=== PATIENT | male | born 1950 | race Caucasian/White ===

== ENCOUNTER 2019-01-17 13:09 | Inpatient (IN) | payer OTHER, MEDICAID ==
[~2019-01-17] VITALS: Ht 182.9 cm; Wt 76.7 kg
--- NOTE | 2019-01-17 13:09 | NUR ---
Patient BIBA BLS, transferred to bed 8. RN evaluating patient at bedside.
[2019-01-17 13:11] VITALS: BP 139/79
--- NOTE | 2019-01-17 13:18 | NUR ---
PATIENT [facility]IB[facility] WITH S/P CHOKING ON PIZZA X TODAY, DECREASED O2 SAT, 85%ON RA, CLEAR LUNG SOUNDS DIOGO. PT IS SELF TALKING, CONFUSED, UNABLE TO ANSWER QUESTIONS, PER CAREGIVER THIS IS BASELINE OF PT. HX---DEVELOPMENTAL DELAY, DEPRESSION, SEIZURE, G-TUBE (MEDICATIONS/WATER ONLY) . FLACC 0, VSS; PATIENT POSITIONED FOR COMFORT; HOB ELEVATED; BEDRAILS UP X2; BED DOWN. ER MD MADE AWARE OF PT STATUS.
--- NOTE | 2019-01-17 13:32 | NUR ---
CHEST X-RAY AT BEDSIDE.
[2019-01-17] MEDS ORDERED: NACL 0.9% 1,500 ML IV SCH (14:01)
[2019-01-17] MEDS ORDERED: ALBUTEROL 0.083% 2.5 MG/3 ML NEBU INH ONE (14:05)
[2019-01-17] MEDS ORDERED: methylPREDNISolone SS 125 MG/2 ML VIAL IVP ONE (14:05)
[2019-01-17] MEDS ORDERED: CLINDAMYCIN 900 MG in DEXTROSE 5% 100 ML IV ONE (14:05)
[2019-01-17] MEDS ORDERED: MAG SULF 2000 MG/WATER PREMIX 50 ML IV ONE (14:05)
[2019-01-17] MEDS ORDERED: IPRATROPIUM 0.02% 0.5 MG/2.5 ML NEBU INH ONE (14:05)
--- NOTE | 2019-01-17 14:18 | NUR ---
[facility] THERAPY AND RESPIRATORY DRUGS GIVEN ORDERED
--- NOTE | 2019-01-17 14:28 | NUR ---
IV LINE INSERTED TO LEFT FOREARM, NS BOLUS STARTED, PT TOLERATED WELL.
[2019-01-17] MEDS ORDERED: CLINDAMYCIN 900 MG/6 ML VIAL IV ONE (14:39)
[2019-01-17 14:42] LABS: BASOPHILS % (AUTO) 0.2 % (0.0-2.0); EOSINOPHILS # (AUTO) 0.1 K/uL (0-0.4); EOSINOPHILS % (AUTO) 0.7 % (0.0-4.0); HEMATOCRIT 43.1 % (36-52); HEMOGLOBIN 14.4 g/dL (12.0-18.0); LYMPHOCYTES # (AUTO) 0.7 K/uL (2.0-11.5); LYMPHOCYTES % (AUTO) 4.6 % (20.5-51.1); MEAN CORPUSCULAR HEMOGLOBIN 31 pg (27-31); MEAN CORPUSCULAR HGB CONC 33 g/dL (33-37); MEAN CORPUSCULAR VOLUME 92.3 fL (80-94); MONOCYTES # (AUTO) 1.4 K/uL (0.8-1.0); MONOCYTES % (AUTO) 8.6 % (1.7-9.3); NEUTROPHILS # (AUTO) 13.6 K/uL (1.8-7.7); NEUTROPHILS % (AUTO) 85.9 % (42.2-75.2); PLATELET COUNT (AUTO) 244 K/uL (140-450); RED BLOOD CELL COUNT(AUTO) 4.67 MIL/uL (4.20-6.10); RED CELL DISTRIBUTION WIDTH 13.6 % (11.6-13.7); WHITE BLOOD COUNT (AUTO) 15.8 K/uL (4.8-10.8)
[2019-01-17 15:05] LABS: ALBUMIN 3.4 g/dL (3.4-5.0); TOTAL BILIRUBIN 0.2 mg/dL (0.0-1.0)
--- NOTE | 2019-01-17 15:08 | NUR ---
# 14 FR Urinary catheter inserted utilizing sterile technique. Immediate return of 100 ml CLEAR YELLOW urine noted. Urine sample collected and sent to lab. Pt tolerated procedure WELL.
[2019-01-17 15:39] LABS: APPEARANCE,URINE CLEAR (CLEAR); BILIRUBIN,URINE NEGATIVE (NEGATIVE); BLOOD, URINE NEGATIVE (NEGATIVE); COLOR,URINE YELLOW (YELLOW); LEUKOCYTE ESTERASE ,URINE NEGATIVE (NEGATIVE); NITRITE, URINE NEGATIVE (NEGATIVE); UGLUCOSE NEGATIVE (NEGATIVE)
[2019-01-17] MEDS ORDERED: FAMO-90 PO (15:41)
[2019-01-17] MEDS ORDERED: CAR30 PO (15:41)
[2019-01-17] MEDS ORDERED: ALPR0.252 PO (15:41)
[2019-01-17] MEDS ORDERED: GLYC2TAB PO (15:41)
[2019-01-17] MEDS ORDERED: VALP-22 GT (15:41)
[2019-01-17] MEDS ORDERED: [UNRECOGNIZED DRUG - CODE] GT (15:41)
[2019-01-17] MEDS ORDERED: SYN.075 PO (15:41)
[2019-01-17] MEDS ORDERED: MIRABULK PO (15:41)
[2019-01-17] MEDS ORDERED: QUET25TA PO (15:41)
[2019-01-17] MEDS ORDERED: DOCU-300 PO (15:41)
[2019-01-17] MEDS ORDERED: TOP100 PO (15:41)
[2019-01-17] MEDS ORDERED: QUET50TA PO (15:41)
[2019-01-17 15:42] LABS: RBC,URINE 0-5 /HPF (0-5)
[2019-01-17] MEDS: DEXT 5% /NACL 0.9% 1,000 ML IV SCH (16:55)
[2019-01-17] MEDS ORDERED: MORPHINE SULFATE 2 MG/ML SYR IVP PRN (16:55)
[2019-01-17] MEDS ORDERED: MORPHINE SULFATE 4 MG/ML SYR IVP PRN (16:55)
[2019-01-17] MEDS ORDERED: ONDANSETRON 4 MG/2 ML VIAL IVP PRN (16:55)
[2019-01-17] MEDS ORDERED: ALBUTEROL 0.083% 2.5 MG/3 ML NEBU INH PRN (16:55)
--- NOTE | 2019-01-17 16:55 | NUR ---
CHANGED OXYGEN DEVICE TO A NASAL CANNULA AT 5 LPM SATURATION 94%-95% CAS/RN NOTIFIED
[2019-01-17] MEDS ORDERED: GLYCOPYRROLATE 2 MG PO SCH (17:00)
[2019-01-17 17:10] VITALS: BP 134/71
--- NOTE | 2019-01-17 17:10 | NUR ---
Patient WAS admitted to care of DR. SPENCER . Admited to TELEMETRY room 121B. Belongings list completed. Report to YOVANI MONTOYA AT BEDSIDE, PT VSS, DENIES PAIN.
--- NOTE | 2019-01-17 17:10 | NUR ---
RECEIVED PT FROM CRYSTAL GROWER NURSE, PT IS AWAKE AND AMBULATED TO THE BED, PT HAS A MENTAL RETARDATION, WITH AND IV LINE ON THE LEFT HAND G.22 ON SALINE LOCK. PT HAS A G-TUBE IN PLACE IN THE MID-ABDOMEN, AND STARK AN O2 AT 5L VIA NC IN PLACE. NO SIGN OF DISTRESS NOTED AND WILL MONITOR PT.
--- NOTE | 2019-01-17 17:15 | NUR ---
PT IS AWAKE AND VITAL SIGNS 5TAKEN AND BP IS 134/71, PULSE IS 91, O2 SATURATION IS 93% AT 5L O2 NC, RESPIRATION IS 20/MIN AND TEMPERATURE IS 97.3, MRSA SWAB DONE AND SAMPLE WAS SENT TO LAB. WILL MONITOR PT.
--- NOTE | 2019-01-17 17:40 | NUR ---
PT'S IV LINE WAS INFILTRATED AND A NEW IV LINE WAS STARTED TO PT ON THE RT FA G.22.
[2019-01-17] MEDS: DILTIAZEM 30 MG TAB PO SCH (18:57)
[2019-01-17] MEDS: LEVOFLOXACIN 500 MG/D5W PREMIX 100 ML IV SCH (18:58)
--- NOTE | 2019-01-17 19:04 | NUR ---
PT WAS STARTED ON D5NS AT A RATE OF 100ML/HR, AND VITAL SIGNS CHECKED PRIOR TO MEDICATION ADMINISTRATION AND PT TOLERATED IT, IV MEDICATION WAS GIVEN ALSO VIA PIGGYBACK AND WILL MONITOR PT.
--- NOTE | 2019-01-17 19:20 | NUR ---
ENDORSED PT TO WORM RAISER NURSE FOR CONTINUITY OF CARE. PT IS STABLE AT THIS TIME.
--- NOTE | 2019-01-17 19:25 | NUR ---
RECIEVED PT.AWAKE.ALERT.WITH NO SIGNS OF RESPIRATORY DISTRESS ,WITH G TUBE INTACT ,WITH IV SITE INTACT AND PATENT ,IVF INFUSING WELL ,ON O2 @5LPM/NC,LATEST O2 SAT. 93%,ON S2 PRECAUTION. BED IN LOW POSITION ,SIDE RAILS UP X2, CALL LIGHT WITHIN REACH ,AFEBRILE,INCONTINENT ,ON NPO EXCEPT MEDS.WILL CONTINUE TO MONITOR.
[2019-01-17 20:00] VITALS: BP 141/82
[2019-01-17] MEDS ORDERED: CALCIUM CARBONATE 500 MG TAB.CHEW PEG SCH (20:30)
[2019-01-17] MEDS ORDERED: DOCUSATE SODIUM PO SCH (21:00)
[2019-01-17] MEDS: VALPROIC ACID 250 MG/5 ML UDC GT SCH (21:06)
--- NOTE | 2019-01-17 21:06 | NUR ---
SCHEDULED MEDICINES GIVEN WITH APPLECAUCE / ORALLY GIVEN WITH ASPIRATION PRECAUTION. MONITOR SIDE EFFECTS OF MEDICATION FROM NOW AND THEN. WILL CONTINUE TO MONITOR.
[2019-01-17] MEDS: DOCUSATE SODIUM 100 MG GELCAP PO SCH (21:07)
[2019-01-17] MEDS: TOPIRAMATE 100 MG TAB PO SCH (21:07)
[2019-01-17] MEDS: QUEtiapine FUMARATE 25 MG TAB PO SCH ×2 (21:08→21:09)
[2019-01-17] MEDS: ALPRAZolam 0.25 MG TAB PO SCH (21:26)
--- NOTE | 2019-01-17 22:00 | NUR ---
MADE ROUNDS. PATIENT RESTING ON BED ,NO RESPIRATORY DISTRESS NOTED .
[2019-01-18] VITALS: BP 137/76
--- NOTE | 2019-01-18 | NUR ---
V/S TAKEN ,NO RESPIRATORY DISTRESS NOTED. IV SITE INTACT AND PATENT .BED IN LOW POSITION.SIDERAILS UP 2X.WILL CONTINUE TO MONITOR.
[2019-01-18 04:00] VITALS: BP 141/74
--- NOTE | 2019-01-18 04:00 | NUR ---
V/S TAKEN, NO RESPIRATORY DISTRESS NOTED .WILL CONTINUE TO MONITOR.
[2019-01-18] MEDS: DEXT 5% /NACL 0.9% 1,000 ML IV SCH ×2 (05:20→12:55)
[2019-01-18] MEDS: LEVOTHYROXINE 0.075 MG TAB PO SCH (05:54)
[2019-01-18 07:46] LABS: HEMATOCRIT 39.1 % (36-52); LYMPHOCYTES # (AUTO) 0.9 K/uL (2.0-11.5); MEAN CORPUSCULAR HEMOGLOBIN 31 pg (27-31); MEAN CORPUSCULAR HGB CONC 33 g/dL (33-37); MEAN CORPUSCULAR VOLUME 92.1 fL (80-94); MONOCYTES # (AUTO) 1.4 K/uL (0.8-1.0); MONOCYTES % (AUTO) 7.3 % (1.7-9.3); NEUTROPHILS # (AUTO) 17.5 K/uL (1.8-7.7); PLATELET COUNT (AUTO) 263 K/uL (140-450); RED BLOOD CELL COUNT(AUTO) 4.24 MIL/uL (4.20-6.10); RED CELL DISTRIBUTION WIDTH 13.7 % (11.6-13.7); WHITE BLOOD COUNT (AUTO) 19.8 K/uL (4.8-10.8)
--- NOTE | 2019-01-18 07:46 | NUR ---
REPORT GIVEN TO YOVANI MONTOYA FOR CONTINUITY OF CARE PT IN STABLE CONDITION.
--- NOTE | 2019-01-18 07:47 | NUR ---
RECEIVED PT FROM REGIONAL AGRONOMIST NURSE. PT AWAKE, ORIENTED ONLY TO SELF. RESPIRATIONS ARE EVEN AND UNLABORED, ON 5L O2 VIA NC. PT HAS 22GA IV ON RIGHT FA WITH D5NS ON 100ML/HR. PT HAS G-TUBE MID ABD. IS NPO SINCE 01/17 AT DINNER TIME. PT IS ON BED REST, FALL RISK PRECAUTION. SIDE RAILS UP AND CALL LIGHT WITHIN REACH.
[2019-01-18 08:00] VITALS: BP 124/82
[2019-01-18 08:03] LABS: ANION GAP 11.8 (8-16); POTASSIUM 3.8 mmol/L (3.5-5.1)
[2019-01-18 08:30] LABS: LYMPHOCYTES % (AUTO) 4.4 % (20.5-51.1); NEUTROPHILS % (AUTO) 88.3 % (42.2-75.2)
[2019-01-18] MEDS: VALPROIC ACID 250 MG/5 ML UDC GT SCH ×2 (08:38→22:06)
[2019-01-18] MEDS: CALCIUM CARBONATE 500 MG TAB.CHEW PEG SCH ×3 (08:39→17:07)
[2019-01-18] MEDS: QUEtiapine FUMARATE 25 MG TAB PO SCH ×3 (08:39→22:07)
[2019-01-18] MEDS: DOCUSATE SODIUM 100 MG GELCAP PO SCH ×2 (08:39→22:07)
[2019-01-18] MEDS: ALPRAZolam 0.25 MG TAB PO SCH ×2 (08:40→22:08)
[2019-01-18] MEDS: FAMOTIDINE 20 MG TAB PO SCH (08:40)
[2019-01-18] MEDS: DILTIAZEM 30 MG TAB PO SCH ×3 (08:41→17:08)
[2019-01-18] MEDS: POLYETHYLENE GLYCOL 17 GM/PKT PO SCH (08:41)
--- NOTE | 2019-01-18 08:45 | NUR ---
PT IS AWAKE AND SEATED ON THE BED, AGITATED, MEDICATIONS WERE GIVEN, CRUSHED WITH APPLE SAUCE AND PT TOLERATED IT, VITAL SIGNS CHECKED AND BP IS 139/81, PULSE IS 87, O2 SATURATION IS 93%, PT TOLERATED THE MEDICATIONS AND NO SIGN OF DISTRESS NOTED. WILL MONITOR PT.
[2019-01-18] MEDS ORDERED: TOPIRAMATE 100 MG TAB PO SCH (08:47)
[2019-01-18] MEDS: TOPIRAMATE 100 MG TAB PO SCH ×2 (08:58→22:08)
--- NOTE | 2019-01-18 09:12 | NUR ---
PT REMOVED HIS NASAL CANNULA AND DOES NOT WANT TO HOOK IT ON HIM, O2 SATURATION IS AT 89%. PT IS AGITATED AT THIS TIME.
--- NOTE | 2019-01-18 10:34 | NUR ---
PT IS SLEEPING ON THE BED, WITH SIDE RAILS UP AND CALL LIGHT WITHIN REACH, O2 SATURATION IS AT 91% ON ROOM AIR. RESPIRATION IS EVEN. NO SIGN OF DISTRESS NOTED AND WILL MONITOR PT.
[2019-01-18] MEDS: GLYCOPYRROLATE 1 MG TAB PO SCH ×2 (11:53→17:03)
--- NOTE | 2019-01-18 11:53 | NUR ---
PT IS AWAKE AND VITAL SIGNS CHECKED, BP IS 120/75, PULSE IS 82, O2 SATURATION IS AT 92% ON ROOM AIR, PT DOES NOT WANT NASAL CANNULA TO BE PLACE ON HIM, TEMPERATURE IS 98.4, RESPIRATION IS 18/MIN, MEDICATION WAS GIVEN AND PT TOLERATED IT. NO SIGN OF DISTRESS NOTED, PT IS REFUSING TO BE REPOSITIONED NOW. WILL MONITOR PT.
[2019-01-18 12:00] VITALS: BP 120/75
--- NOTE | 2019-01-18 14:58 | NUR ---
PT IS AWAKE AND LYING ON THE BED, VITAL SIGNS CHECKED AND BP IS 116/71, PULSE 85, O2 SATURATION IS 93%, MEDICATIONS WERE GIVEN AND PT TOLERATED IT. NO SIGN OF DISTRESS NOTED AND WILL MONITOR PT.
[2019-01-18 16:00] VITALS: BP 122/75
[2019-01-18] MEDS: LEVOFLOXACIN 500 MG/D5W PREMIX 100 ML IV SCH (17:05)
--- NOTE | 2019-01-18 17:05 | NUR ---
PT GIVEN MEDS WITH APPLESAUCE, AND TOLERATED WELL. VS BP129/76, HR 76, O2 96%
[2019-01-18] MEDS: LORazepam 2 MG/ML VIAL IVP PRN (17:55)
--- NOTE | 2019-01-18 17:59 | NUR ---
PT IS AGITATED AND WANTING TO GO OUT OF THE BED, VITAL SIGNS CHECKED AND BP IS 122/71.,PULSE IS 76, O2 SATURATION IS 96% AND RESPIRATION IS 20/MIN, IV MEDICATION WAS GIVEN VIA IV PUSH AND PT TOLERATED IT. WILL MONITOR PT.
--- NOTE | 2019-01-18 18:41 | NUR ---
PER [facility], PT IS FULL CODE.
--- NOTE | 2019-01-18 19:20 | NUR ---
ENDORSED PT TO MFTS NURSE FOR CONTINUITY OF CARE. PT ASLEEP, RESPIRATION EVEN AND STABLE AT THIS TIME.
--- NOTE | 2019-01-18 19:20 | NUR ---
REPORT RECEIVED FROM JAN PINA AND MAGED PINA DAYSHIFT NURSES AT BEDSIDE FOR CONTINUITY OF CARE, PT IN STABLE CONDITION.
[2019-01-18 20:00] VITALS: BP 110/61
--- NOTE | 2019-01-18 20:00 | NUR ---
PT IN BED ALL FALLS AND SEIZURE PRECAUTIONS IN PLACE. PT IS AOX1 HE HAS A 22G ON RIGHT F/A RUNNING D5N/S AT 100MLS/HR. PT HAS A G TUBE, POSITIVE FOR PLACEMENT. HE IS ON N/C AT 5 LITERS 02. LUNG SOUNDS DIMINISHED AND BOWEL SOUNDS PRESENT BUT HYPOACTIVE AT THIS TIME. V/S FOLLOWS T 98.0 P 71 R 18 B/P 110/61 02 96% WITH 5 LITERS 02 VIA N/C.
--- NOTE | 2019-01-18 21:00 | NUR ---
PT GIVEN ORDERED SCHEDULED MEDS AT THIS TIME OF DEPAKOTE, COLACE, SEROQUEL, TOPAMAX AND XANAX. MEDS GIVEN VIA G TUBE. PT AWAKE AND ALERT WITH NO S/S OF PAIN OR DISTRESS NOTED. ALL FALLS AND SEIZURE PRECAUTIONS IN PLACE.
--- NOTE | 2019-01-18 22:00 | NUR ---
PT TURNED, CHANGED AND REPOSITIONED. ALL FALLS AND SEIZURE PRECAUTIONS IN PLACE.
--- NOTE | 2019-01-18 22:30 | NUR ---
IV BAG COMPLETED , NEW BAG OF D5N/S CHANGED AND RUNNING ORDERED AT 100MLS/HR.
[2019-01-19] VITALS: BP 110/61
--- NOTE | 2019-01-19 | NUR ---
PT IN BED ASLEEP BUT AROUSABLE TO NAME AND LIGHT TOUCH. PT HAS N/C IN PLACE AND RUNNING 5L VIA O2. IV SITE INTACT AND RUNNING D5N/S AT 100MLS/HR ORDERED. V/S FOLLOWS T 98.2 P 81 R 18 B/P 110/61 02 92%. NO S/S OF PAIN OR DISTRESS NOTED.
[2019-01-19] MEDS: DEXT 5% /NACL 0.9% 1,000 ML IV SCH ×2 (01:29→09:15)
--- NOTE | 2019-01-19 03:08 | NUR ---
PT IN BED SLEEPING ALL FALLS AND SEIZURE PRECAUTIONS IN PLACE, NO S/S OF PAIN OR DISTRESS NOTED.
[2019-01-19 04:00] VITALS: BP 120/61
--- NOTE | 2019-01-19 04:00 | NUR ---
PT IN BED WITH ALL FALLS AND SEIZURE PRECAUTIONS IN PLACE, V/S FOLLOWS T 97.7 P 84 R 18 B/P 120/61 02 96% ON 5 LITERS VIA N/C.
[2019-01-19] MEDS ORDERED: CLINDAMYCIN 600 MG in DEXTROSE 5% 50 ML IV SCH (05:00)
[2019-01-19] MEDS ORDERED: CLINDAMYCIN 600 MG/4 ML VIAL ONE (05:10)
[2019-01-19] MEDS: LEVOTHYROXINE 0.075 MG TAB PO SCH (05:26)
[2019-01-19] MEDS: GLYCOPYRROLATE 1 MG TAB PO SCH ×3 (05:27→17:06)
--- NOTE | 2019-01-19 07:21 | NUR ---
REPORT GIVEN TO USHA PINA DAYSHIFT NURSE AT BEDSIDE FOR CONTINUITY OF CARE, PT IN STABLE CONDITION.
--- NOTE | 2019-01-19 07:22 | NUR ---
BEDSIDE REPORT RECEIVED FROM YOVANI WOODS. PATIENT ON TELE MONITOR AND STANDARD PRECAUTIONS IN PLACE. PATIENT ON 5 L O2 NC, NO DISTRESS NOTED. PATIENT AAOX1 TO NAME. SKIN INTACT. FALL RISK PROTOCOL IN PLACE. PATIENT WITH G TUBE, DRESSING CLEAN DRY AND INTACT, NO GASTRIC RESIDUAL AND SWOOSH HEARD. IV ON R FA 22G INFUSING D5 NS AT 100, IV ASYMPTOMATIC PATENT AND INTACT. SEIZURE PRECAUTIONS IN PLACE. BED IN LOW POSITION, CALL LIGHT WITHIN REACH, SIDE RAILS X2 UP
[2019-01-19 08:00] VITALS: BP 111/88
[2019-01-19] MEDS: CALCIUM CARBONATE 500 MG TAB.CHEW PEG SCH ×3 (09:13→17:06)
[2019-01-19] MEDS: FAMOTIDINE 20 MG TAB PO SCH (09:14)
[2019-01-19] MEDS: VALPROIC ACID 250 MG/5 ML UDC GT SCH ×2 (09:14→20:19)
[2019-01-19] MEDS: DOCUSATE SODIUM 100 MG GELCAP PO SCH ×2 (09:14→20:19)
[2019-01-19] MEDS: POLYETHYLENE GLYCOL 17 GM/PKT PO SCH (09:15)
[2019-01-19] MEDS: DILTIAZEM 30 MG TAB PO SCH ×3 (09:15→17:06)
[2019-01-19] MEDS: TOPIRAMATE 100 MG TAB PO SCH ×2 (09:16→20:22)
[2019-01-19] MEDS: QUEtiapine FUMARATE 25 MG TAB PO SCH ×3 (09:16→20:21)
[2019-01-19] MEDS: ALPRAZolam 0.25 MG TAB PO SCH ×2 (09:16→20:30)
--- NOTE | 2019-01-19 09:32 | NUR ---
ADMINISTERED SCHEDULED MEDS. PATIENT TOLERATED WELL
--- NOTE | 2019-01-19 11:50 | NUR ---
PATIENT WATCHING TV, NO DISTRESS NOTED, ON 5 L O2 NC
[2019-01-19 12:00] VITALS: BP 126/72
[2019-01-19] MEDS: CLINDAMYCIN PHOS 600MG/D5W PM 50 ML IV SCH ×2 (12:16→20:19)
--- NOTE | 2019-01-19 13:32 | NUR ---
PATIENT HAS BEEN SCREENED AND CATEGORIZED MODERATE NUTRITION RISK. PATIENT WILL BE SEEN WITHIN 3-5 DAYS OF ADMISSION. 01/20/19AGUSTÍN ZAMORA MBA, RD
--- NOTE | 2019-01-19 14:31 | NUR ---
PATIENT SLEEPING, ON 5L O2 NC, NO DISTRESS NOTED
[2019-01-19 16:00] VITALS: BP 109/40
[2019-01-19] MEDS: LEVOFLOXACIN 500 MG/D5W PREMIX 100 ML IV SCH (17:07)
--- NOTE | 2019-01-19 17:16 | NUR ---
PATIENT SLEEPING, R SIDE LYING POSITION, ON 3 L O2 NC, NO S/S OF RESPIRATORY DISTRESS
--- NOTE | 2019-01-19 19:20 | NUR ---
RECEIVED REPORT FROM USHA PINA DAYSHIFT NURSE AT BEDSIDE FOR CONTINUITY OF CARE, PT IN STABLE CONDITION.
--- NOTE | 2019-01-19 19:20 | NUR ---
GAVE BEDSIDE REPORT TO YOVANI WOODS FOR CONTINUITY OF CARE. PATIENT ENDORSED IN STABLE CONDITION
[2019-01-19 20:00] VITALS: BP 108/70
--- NOTE | 2019-01-19 20:00 | NUR ---
PT IN LOW BED WITH ALL FALLS AND SEIZURE AND CONTACT PRECAUTIONS IN PLACE. PT BOOSTED AND REPOSITION IN BED. V/S FOLLOWS T 98.5 P 86 R 18 B/P 108/70 02 93% WITH 5 LITERS VIA N/C. IV SITE R F/A 22G RUNNING D5N/S TO KVO. PT IN NO S/S OF PAIN OR DISTRESS NOTED. LUNG SOUNDS DIMINISHED , BOWEL SOUNDS PRESENT.
--- NOTE | 2019-01-19 21:00 | NUR ---
PT IN BED WITH ALL FALLS, CONTACT AND SEIZURE PRECAUTIONS IN PLACE. GT TUBE INTACT , POSITIVE FOR PLACEMENT AND FLUSHED PATENT ALL DUE MEDICATION GIVEN ORDERED DEPAKENE COLACE, TOPAMAX, XANAX, SEROQUEL ALL GIVEN VIA GT PT ALSO RECEIVED IV ABT CLINDAMYCIN.
--- NOTE | 2019-01-19 21:30 | NUR ---
PT TURNED, CHANGED AND REPOSITIONED.
--- NOTE | 2019-01-19 22:30 | NUR ---
PT ASLEEP IN BED, ALL FALLS, CONTACT AND SEIZURE PRECAUTIONS IN PLACE.
[2019-01-20] VITALS: BP 106/58
--- NOTE | 2019-01-20 00:15 | NUR ---
PT IN BED WITH ALL FALLS AND SEIZURE PRECAUTIONS OBSERVED. PT WAS TURNED , CHANGED AND REPOSITIONED. PT NOTED WITH REDDENED SKIN ON R F/A 22G R. DISCUSSED WITH CHARGE NURSE CHUCK WHOM ALSO AGREED THAT SITE WAS INFILTRATED. NEW IV SITE PROVIDED TO LEFT WRIST 22G ON WRIST. V/S FOLLOWS T 98.5 P 86 R 18 B/P 108/70 02 93% ON 5 LITERS VIA N/C.
[2019-01-20 04:00] VITALS: BP 113/59
--- NOTE | 2019-01-20 04:00 | NUR ---
PT IN BED RESTING WITH EYES CLOSED BUT AROUSABLE TO NAME AND LIGHT TOUCH. V/S FOLLOWS T 98.4 P 70 R 18 B/P 113/59 02 96% WITH 5 LITERS VIA N/C.
--- NOTE | 2019-01-20 05:29 | NUR ---
DECREASED NASAL CANNULA FROM 5L/M TO 3L/M AND PATIENT DESAT TO 90-91%. INCREASED TO 4L/M AND SPO2 MAINTAINED AT 93%. WATER IS STILL AVAILABLE IN BUBBLE HUMIDIFICATION.
[2019-01-20] MEDS: CLINDAMYCIN PHOS 600MG/D5W PM 50 ML IV SCH ×3 (05:58→21:34)
[2019-01-20] MEDS: LEVOTHYROXINE 0.075 MG TAB PO SCH (05:59)
[2019-01-20] MEDS: GLYCOPYRROLATE 1 MG TAB PO SCH ×3 (05:59→18:03)
--- NOTE | 2019-01-20 06:00 | NUR ---
PT IN BED ALL FALLS AND SEIZURE PRECAUTIONS IN PLACE. PT GIVEN IVABT CLINDAMYCIN ORDERED. PT ALSO RECEIVED SYNTHROID AND RUBINOL ORDERED. IV SITE FLUSHED PATENT. NO S/S OF PAIN OR DISTRESS NOTED.
[2019-01-20 06:54] LABS: BASOPHILS # (AUTO) 0.1 K/uL (0.00-0.22); BASOPHILS % (AUTO) 0.7 % (0.0-2.0); EOSINOPHILS # (AUTO) 0.2 K/uL (0-0.4); EOSINOPHILS % (AUTO) 1.6 % (0.0-4.0); HEMATOCRIT 37.4 % (36-52); HEMOGLOBIN 12.5 g/dL (12.0-18.0); LYMPHOCYTES # (AUTO) 2.4 K/uL (2.0-11.5); LYMPHOCYTES % (AUTO) 16.2 % (20.5-51.1); MEAN CORPUSCULAR HEMOGLOBIN 31 pg (27-31); MEAN CORPUSCULAR HGB CONC 34 g/dL (33-37); MEAN CORPUSCULAR VOLUME 91.7 fL (80-94); MONOCYTES # (AUTO) 1.3 K/uL (0.8-1.0); MONOCYTES % (AUTO) 9.2 % (1.7-9.3); NEUTROPHILS # (AUTO) 10.6 K/uL (1.8-7.7); NEUTROPHILS % (AUTO) 72.3 % (42.2-75.2); PLATELET COUNT (AUTO) 258 K/uL (140-450); RED BLOOD CELL COUNT(AUTO) 4.07 MIL/uL (4.20-6.10); RED CELL DISTRIBUTION WIDTH 13.3 % (11.6-13.7); WHITE BLOOD COUNT (AUTO) 14.6 K/uL (4.8-10.8)
[2019-01-20 07:05] LABS: ANION GAP 12.7 (8-16); CARBON DIOXIDE 22.2 mmol/L (21-32); CREATININE 0.9 mg/dL (0.7-1.3); POTASSIUM 3.9 mmol/L (3.5-5.1)
--- NOTE | 2019-01-20 07:23 | NUR ---
REPORT TO BE GIVEN AT BEDSIDE TO DAYSHIFT NURSE FOR CONTINUITY OF CARE, PT IN STABLE CONDITION.
--- NOTE | 2019-01-20 07:30 | NUR ---
RECEIVED PT ON BED AAOX1, TO NAME ONLY, PT CONFUSED, HX MENTAL RETARDATION. NO SOB NOTED. NO SIGNS OF PAIN AT THIS TIME. IV TO LEFT HAND PATENT AND INTACT. CHEST DIMINISHED AIR ENTRY TO THE BASES, WHEEZING HEARD BILATERALLY, PT ON 2 LPM NASAL CANNULA, WITH O2 SATS AT 93% . ABDOMEN SOFT, BOWEL BOWEL SOUNDS PRESENT, G-TUBE IN PLACE, 5 MLS RESIDUALS NOTED. BED ON LOWEST POSITION WITH 3 SIDE RAILS RAISED UP, BED ALARM ON. INSTRUCTED PT TO CALL FOR ASSISTANCE, CALL LIGHT WITHIN REACH, VERBALIZED PARTIAL UNDERSTANDING.
[2019-01-20 08:00] VITALS: BP 132/83
--- NOTE | 2019-01-20 08:30 | NUR ---
PT TOLERATED PUREE DIET. ON ASPIRATION PRECAUTIONS.
[2019-01-20] MEDS: FAMOTIDINE 20 MG TAB PO SCH (09:59)
[2019-01-20] MEDS: POLYETHYLENE GLYCOL 17 GM/PKT PO SCH (09:59)
[2019-01-20] MEDS: CALCIUM CARBONATE 500 MG TAB.CHEW PEG SCH ×3 (09:59→18:03)
[2019-01-20] MEDS: DOCUSATE SODIUM 100 MG GELCAP PO SCH ×2 (09:59→21:30)
[2019-01-20] MEDS: DILTIAZEM 30 MG TAB PO SCH ×3 (10:00→18:03)
[2019-01-20] MEDS: TOPIRAMATE 100 MG TAB PO SCH ×2 (10:00→21:29)
[2019-01-20] MEDS: QUEtiapine FUMARATE 25 MG TAB PO SCH ×3 (10:00→21:34)
[2019-01-20] MEDS: ALPRAZolam 0.25 MG TAB PO SCH ×2 (10:00→21:30)
[2019-01-20] MEDS: VALPROIC ACID 250 MG/5 ML UDC GT SCH ×2 (10:01→21:28)
--- NOTE | 2019-01-20 10:34 | NUR ---
CONTACTED [facility] AT [phone], SPOKE TO SERENA LUNA FACILITY DIRECTOR. SHE STATED PATIENT NOT IN O2 RECENTLY BUT HAVE USED ONE IN THE PAST. ALSO STATED THAT IF PATIENT NEEDS IT, THE FACILITY CAN PROVIDE O2. PATIENT IS NOT CONSERVED, BUT THEY CONTACT [facility], CM IS WEN GODOY [phone]. PATIENT NEEDS HELP WITH DRESSING, BUT ABLE TO EAT BY HIMSELF, ON PUREE DIET, NEEDS ASSISTANCE AND REMINDER FOR BATHROOM USE. SHE ALSO CLAIMED PATIENT IS INCONTINENT. PATIENT'S PCP IS DR. Jf SPENCER, [employer] DEVELOPER VISITS THE PATIENT IN THE FACILITY. NO FAMILY MEMBER INVOLVED WITH THE CARE.
[2019-01-20 12:00] VITALS: BP 106/60
--- NOTE | 2019-01-20 12:30 | NUR ---
PT TOLERATED PUREE DIET FOR LUNCH. ON ASPIRATION PRECAUTIONS. ALL MEDICATIONS ARE GIVEN THRU PEG.
--- NOTE | 2019-01-20 15:00 | NUR ---
PT RESTING. NO SOB NOTED. NO SIGNS OF PAIN.
[2019-01-20 16:00] VITALS: BP 125/62
--- NOTE | 2019-01-20 18:00 | NUR ---
PT TOLERATED PUREE DIET FOR DINNER. ON ASPIRATION PRECAUTIONS. PT ABLE TO FEED HIMSELF ON STANDBY ASSIST.
[2019-01-20] MEDS: LEVOFLOXACIN 500 MG/D5W PREMIX 100 ML IV SCH (18:03)
--- NOTE | 2019-01-20 19:00 | NUR ---
PTS' BOTTOMER OPERATOR AT THE BEDSIDE. UPDATED WITH PT'S POC. PT AWAKE. NO SOB NOTED. NO COMPLAINTS MADE. WILL ENDORSE TO NEXT SHIFT NURSE FOR CONTINUITY OF CARE.
--- NOTE | 2019-01-20 19:20 | NUR ---
RECEIVED BEDSIDE REPORT FROM DAY SHIFT RN. PATIENT IN STABLE CONDITION ON 2L O2 VIA NC. SAFETY PRECAUTIONS IN PLACE. CALL LIGHT IN REACH.
[2019-01-20 20:00] VITALS: BP 139/26
--- NOTE | 2019-01-20 20:00 | NUR ---
INFORMED PTS NURSE PT WAS ON ROOM AIR WITH SATURATION OF 95%. PT WAS IN NO RESPIRATORY DISTRESS AND WITH NO SOB. WILL CONT TO MONITOR PT
--- NOTE | 2019-01-20 21:34 | NUR ---
ADMINISTERED SCHEDULED MEDICATIONS. PLACED PATIENT IN HIGH FOWLERS AND ADMINISTERED MEDICATIONS CRUSHED IN APPLESAUCE, PATIENT TOLERATED WELL. SAFETY PRECAUTIONS IN PLACE. WILL CONTINUE TO MONITOR.
--- NOTE | 2019-01-20 23:40 | NUR ---
ASSISTED SHED WORKERS SUPERVISOR WITH CLEANING PATIENT AND REPOSITIONING FOR COMFORT. PATIENT VITALS STABLE. PATIENT WANTS TO SLEEP. WILL CONTINUE TO MONITOR.
[2019-01-21] VITALS: BP 100/57
--- NOTE | 2019-01-21 00:23 | NUR ---
PATIENT WATCHING TV. VITALS STABLE ON 2L O2 NC. SAFETY PRECAUTIONS IN PLACE. WILL CONTINUE TO MONITOR.
--- NOTE | 2019-01-21 03:06 | NUR ---
PATIENT IS SLEEPING. NO SIGNS OF DISTRESS ON 2L NC, SAFETY PRECAUTIONS IN PLACE. WILL CONTINUE TO MONITOR.
[2019-01-21 04:00] VITALS: BP 101/71
[2019-01-21] MEDS: CLINDAMYCIN PHOS 600MG/D5W PM 50 ML IV SCH ×3 (04:31→20:16)
--- NOTE | 2019-01-21 04:35 | NUR ---
ASSISTED YARD SPOTTER WITH CLEANING AND REPOSITIONING PATIENT.
--- NOTE | 2019-01-21 05:42 | NUR ---
PATIENT SLEEPING, NO SIGNS OF DISTRESS NOTED. SAFETY PRECAUTIONS IN PLACE. WILL CONTINUE TO MONITOR.
[2019-01-21] MEDS: LEVOTHYROXINE 0.075 MG TAB PO SCH (06:07)
[2019-01-21] MEDS: GLYCOPYRROLATE 1 MG TAB PO SCH ×3 (06:43→16:15)
--- NOTE | 2019-01-21 06:45 | NUR ---
ADMINISTERED SCHEDULED MEDICATIONS VIA G-TUBE. PATIENT TOLERATED WELL. NO SIGNS OF DISTRESS ON 1 L NC, WILL CONTINUE TO MONITOR.
--- NOTE | 2019-01-21 07:21 | NUR ---
RECEIVED REPORT FROM WORKERS COMPENSATION SPECIALIST RN. PT IS LAYING IN BED. PT IS AAOX1 TO NAME ONLY. PT EXHIBITS CONFUSION, HX MENTAL RETARDATION. NO SOB NOTED. NO SIGNS OF PAIN AT THIS TIME. IV TO LEFT HAND PATENT AND INTACT. PT ON 2 LPM VIA NASAL CANNULA, WITH O2 SAT AT 92% . ABDOMEN SOFT, BOWEL SOUNDS PRESENT, G-TUBE IN PLACE, 5 ML RESIDUALS NOTED. BED ON LOWEST POSITION WITH 2 SIDE RAILS RAISED UP, BED ALARM ON. INSTRUCTED PT TO USE CALL LIGHT FOR ASSISTANCE. PT VERBALIZED UNDERSTANDING BUT WILL NEED REINFORCEMENT OFTEN. CALL LIGHT WITHIN REACH. WILL ROUND FREQUENTLY ON PT.
[2019-01-21 08:00] VITALS: BP 136/72
[2019-01-21] MEDS: DOCUSATE SODIUM 100 MG GELCAP PO SCH ×2 (09:22→20:08)
[2019-01-21] MEDS: VALPROIC ACID 250 MG/5 ML UDC GT SCH ×2 (09:22→20:07)
--- NOTE | 2019-01-21 09:22 | NUR ---
ADMINISTERED MORNING MEDS TO PT. PT TOLERATED THEM WELL. NO SIGNS OF SOB, FLACC-0. WILL ROUND FREQUENTLY ON PT. BED IN LOW POSITION, CALL LIGHT WITHIN REACH.
[2019-01-21] MEDS: QUEtiapine FUMARATE 25 MG TAB PO SCH ×3 (09:23→20:09)
[2019-01-21] MEDS: TOPIRAMATE 100 MG TAB PO SCH ×2 (09:23→20:09)
[2019-01-21] MEDS: DILTIAZEM 30 MG TAB PO SCH ×3 (09:23→17:00)
[2019-01-21] MEDS: ALPRAZolam 0.25 MG TAB PO SCH ×2 (09:23→20:09)
[2019-01-21] MEDS: FAMOTIDINE 20 MG TAB PO SCH (09:23)
[2019-01-21] MEDS: POLYETHYLENE GLYCOL 17 GM/PKT PO SCH (09:24)
[2019-01-21] MEDS: CALCIUM CARBONATE 500 MG TAB.CHEW PEG SCH ×3 (09:24→17:00)
--- NOTE | 2019-01-21 10:39 | NUR ---
DC PLANNING: CM CHECKED WITH THREAD MACHINE OPERATOR ( [facility]) REGARDING SNF DAYS. PATIENT HAS FULL-SNF:0, CO-SNF: 51 BUT LAST BILLING DATE WAS ON 08/05/2009. PATIENT HAS A G- TUBE. CM DISCUSSED WITH DR. SPENCER RAGARDING DC PLANNING REGARDING SNF EVALUATION. DC BARRIER NO SNF DAYS. PER DR. SPENCER, WILL POSSIBLY DC PATIENT BACK TO THE [facility] TOMORROW AND WILL POSSIBLY NEED HOME HEALTH SETUP FOR DISEASE MANAGEMENT, MEDICATION RECONCILIATION, DME / OXYGEN TEACHING. CM TO FOLLOW UP WITH MD TOMORROW.
--- NOTE | 2019-01-21 11:30 | NUR ---
ADMINISTERED SCHEDULED MEDICATIONS WITH APPLESAUCE. PATIENT ABLE TO SWALLOW WITH NO DIFFICULTY. NO SIGNS OF DISTRESS NOTED AT THIS TIME. FLACC O. WILL CONTINUE TO MONITOR.
--- NOTE | 2019-01-21 13:00 | NUR ---
ADMINISTERED SCHEDULED MEDICATIONS. PO MEDS GIVEN WITH APPLESAUCE. NO SIGNS OF DISTRESS NOTED AT THIS TIME. FLACC 0. WILL CONTINUE TO MONITOR.
--- NOTE | 2019-01-21 13:24 | NUR ---
01/21/19 RD INITIAL ASSESSMENT COMPLETED PLEASE REFER TO NUTRITION ASSESSMENT UNDER CARE ACTIVITY FOR ESTIMATED NUTRITIONAL NEEDS. 1. RECOMMEND SWALLOW EVALUATION 2. RECOMMEND REGULAR DIET SUGGESTED WITH TEXTURE AND FLUID CONSISTENCY SUGGESTED BY SWALLOW EVALUATION. 3. RD TO FOLLOW-UP 3-5 DAYS, MODERATE RISK ELIS SINGH, PRIMO
--- NOTE | 2019-01-21 15:03 | NUR ---
DC PLANNING: ANA DISCUSSED WITH DR. SPENCER REGARDING DC BARRIER FOR SNF PLACEMENT PATIENT HAS NO MEDICARE DAYS LEFT. STATED TO CHECK WITH DR. OHARA IF ABX CAN BE CHANGED TO PO. CM SPOKE WITH. DR. OHARA AND DISCUSSED THE CASE. DR. OHARA STATED IV ABX CAN BE SWITCHED TO PO ABX UPON DISCHARGE.
[2019-01-21 16:00] VITALS: BP 127/67
--- NOTE | 2019-01-21 16:05 | NUR ---
ADMINISTERED SCHEDULED MEDICATIONS. ADMINISTERED PRN ATIVAN IVP FOR ANXIETY. FLACC 0. WILL CONTINUE TO MONITOR.
[2019-01-21] MEDS: LORazepam 2 MG/ML VIAL IVP PRN (16:15)
--- NOTE | 2019-01-21 17:01 | NUR ---
SERENA SANTIAGO LINECASTING MACHINE KEYBOARD OPERATOR OF [facility] CALLED (#[phone]), UPDATED HER WITH PT'S DISCHARGE PLAN. SERENA STATED THEY HAVE THEIR OWN PHYSICAL THERAPY IN THEIR FACILITY. INFORMED SERENA THAT THE PT STILL NEEDS TO BE EVALUATED BY OUR PHYSICAL THERAPY TOMORROW MORNING. PER SERENA, SHE WILL HAVE THEIR OWN CAREGIVER FROM THEIR FACILITY TO COME IN THE MORNING WHEN PHYSICAL THERAPIST COMES TO HELP WARM UP THE PT. BOAT BUILDER AND REPAIRER MARY NOTIFIED AND WAS GIVEN SERENA'S CONTACT #.
[2019-01-21] MEDS: LEVOFLOXACIN 500 MG/D5W PREMIX 100 ML IV SCH (17:04)
--- NOTE | 2019-01-21 17:30 | NUR ---
ADMINISTERED SCHEDULED MEDICATIONS. PATIENT RESTING IN BED, SMILING. FLACC 0. NO OTHER NEEDS AT THIS TIME.
--- NOTE | 2019-01-21 19:18 | NUR ---
ENDORSED TO TAX ACCOUNTING MANAGER FOR CONTINUITY OF CARE. PATIENT IS STABLE AT THIS TIME.
--- NOTE | 2019-01-21 19:19 | NUR ---
RECEIVED BEDSIDE REPORT FROM DAY SHIFT RN. PATIENT IN STABLE CONDITION. SLIGHTLY AGITATED, WANTS TO GO HOME. PATIENT ON 2L O2 VIA NC. CALMED AND REORIENTED PATIENT. SAFETY PRECAUTIONS IN PLACE. WILL CONTINUE TO MONITOR.
[2019-01-21 20:00] VITALS: BP 113/68
--- NOTE | 2019-01-21 20:20 | NUR ---
ADMINISTERED SCHEDULED MEDICATIONS. PATIENT TOLERATED WELL. PATIENT WANTS TO SLEEP. POSITIONED PATIENT FOR COMFORT. WILL CONTINUE TO MONITOR.
--- NOTE | 2019-01-21 23:40 | NUR ---
PATIENT SLEEPING. VITALS STABLE. NO SIGNS OF DISTRESS ON 2L O2 NC. SAFETY PRECAUTIONS IN PLACE. WILL CONTINUE TO MONITOR.
[2019-01-22] VITALS: BP 122/68
--- NOTE | 2019-01-22 00:15 | NUR ---
PATIENT SLEEPING. VITALS STABLE ON 2L NC. SAFETY PRECAUTIONS IN PLACE. CALL LIGHT IN REACH.
--- NOTE | 2019-01-22 02:30 | NUR ---
PATIENT SLEEPING. NO SIGNS OF DISTRESS ON 2L NC.
[2019-01-22] MEDS: CLINDAMYCIN PHOS 600MG/D5W PM 50 ML IV SCH ×2 (04:15→12:03)
--- NOTE | 2019-01-22 04:18 | NUR ---
ADMINISTERED SCHEDULED MEDICATIONS. PATIENT CLEANED AND REPOSITIONED FOR COMFORT. NO SIGNS OF DISTRESS ON 2L NC. PATIENT WANTS TO SLEEP.
[2019-01-22] MEDS: LEVOTHYROXINE 0.075 MG TAB PO SCH ×2 (06:30→06:35)
[2019-01-22] MEDS: GLYCOPYRROLATE 1 MG TAB PO SCH ×4 (06:35→16:30)
--- NOTE | 2019-01-22 06:40 | NUR ---
PATIENT IS REFUSING TO TAKE MEDICATIONS. WILL RETURN IN 20 MINUTES.
[2019-01-22 06:58] LABS: ANION GAP 10.6 (8-16); CARBON DIOXIDE 27.5 mmol/L (21-32); CREATININE 0.9 mg/dL (0.7-1.3); POTASSIUM 4.1 mmol/L (3.5-5.1)
[2019-01-22 07:09] LABS: BASOPHILS # (AUTO) 0.1 K/uL (0.00-0.22); EOSINOPHILS # (AUTO) 0.3 K/uL (0-0.4); EOSINOPHILS % (AUTO) 2.1 % (0.0-4.0); HEMATOCRIT 37.4 % (36-52); HEMOGLOBIN 12.5 g/dL (12.0-18.0); LYMPHOCYTES # (AUTO) 2.3 K/uL (2.0-11.5); LYMPHOCYTES % (AUTO) 19.5 % (20.5-51.1); MEAN CORPUSCULAR HEMOGLOBIN 31 pg (27-31); MEAN CORPUSCULAR HGB CONC 33 g/dL (33-37); MEAN CORPUSCULAR VOLUME 91.8 fL (80-94); MONOCYTES # (AUTO) 1.3 K/uL (0.8-1.0); NEUTROPHILS % (AUTO) 66.4 % (42.2-75.2); PLATELET COUNT (AUTO) 269 K/uL (140-450); RED BLOOD CELL COUNT(AUTO) 4.08 MIL/uL (4.20-6.10); RED CELL DISTRIBUTION WIDTH 13.2 % (11.6-13.7)
--- NOTE | 2019-01-22 07:20 | NUR ---
RECEIVED BEDSIDE REPORT FROM ROLL FORMING SUPERVISOR NURSE, PT IS AWAKE BUT CONFUSED, TALKING AND YELLING OUT INCOMPREHENSIBLE WORDS. PT IS ON 2 L O2 NC, SKIN INTACT. IV SITE IS ON THE L FA, 22 G, SALINE LOCKED AT THIS TIME. FALL PRECAUTIONS ARE IN PLACE. CALL LIGHT IS WITHIN REACH, CONTINUING TO MONITOR.
--- NOTE | 2019-01-22 07:25 | NUR ---
GAVE BEDSIDE REPORT TO DAY SHIFT RNJAMISON. PATIENT IS IN STABLE CONDITION SHOWING NO SIGNS OF DISTRESS ON 2L NC. SAFETY PRECAUTIONS ARE IN PLACE.
[2019-01-22 08:00] VITALS: BP 100/52
--- NOTE | 2019-01-22 09:28 | NUR ---
PT'S [employer] PRESS TENDER SMOKE SIGNAL POOJA IS VISITING AT BEDSIDE.
--- NOTE | 2019-01-22 09:38 | NUR ---
PT WALKING WITH PHYSICAL THERAPY, GAIT IS STEADY. PHYSICAL THERAPIST IS ASSISTING WITH A GAIT BELT.
[2019-01-22] MEDS: CALCIUM CARBONATE 500 MG TAB.CHEW PEG SCH ×3 (09:44→17:45)
[2019-01-22] MEDS: VALPROIC ACID 250 MG/5 ML UDC GT SCH (09:44)
[2019-01-22] MEDS: DILTIAZEM 30 MG TAB PO SCH ×3 (09:45→17:45)
[2019-01-22] MEDS: ALPRAZolam 0.25 MG TAB PO SCH (09:45)
[2019-01-22] MEDS: TOPIRAMATE 100 MG TAB PO SCH (09:45)
[2019-01-22] MEDS: QUEtiapine FUMARATE 25 MG TAB PO SCH (09:46)
[2019-01-22] MEDS: DOCUSATE SODIUM 100 MG GELCAP PO SCH (09:46)
[2019-01-22] MEDS: FAMOTIDINE 20 MG TAB PO SCH (09:46)
[2019-01-22] MEDS: POLYETHYLENE GLYCOL 17 GM/PKT PO SCH (09:47)
--- NOTE | 2019-01-22 09:51 | NUR ---
ALL SCHEDULED AM MEDS ADMINISTERED, PT COMPLIED AND TOLERATED MEDS WELL.
--- NOTE | 2019-01-22 11:00 | NUR ---
PT IS ASLEEP AT THIS TIME. NO S/S OF ANY ACUTE DISTRESS NOTED.
--- NOTE | 2019-01-22 14:05 | NUR ---
Agricultural Chemist Note: Late entry for 01/21/19: Per Talent Assistant from [facility] (intermediate care facility) [facility] patient may return to their facility upon discharge. Patient's pcp is Dr. Gómez and Dr. Gómez follows up with patient at facility once a month. [facility] stated patient does not have any family. Patient has home O2 at [facility] and does not use a walker nor wheelchair. Patient's case operator at [facility] is Chanda James . [facility]'s transportation is available 18/03. I called and spoke with Chanda James. She reported she does not have any questions or concerns at this time. Flatwork Feeder and/or Informatics Analyst will follow up as needed.
[2019-01-22] MEDS ORDERED: CLIN300C2 PO ×3 (15:52→15:54)
--- NOTE | 2019-01-22 16:25 | NUR ---
SPOKE WITH DR DAMION SPENCER REGARDING PT'S DISCHARGE PRESCRIPTION FOR CLINDAMYCIN, DR SPENCER ASKED TO FIND OUT WHICH PHARMACY PT USES AND THE PHONE NUMBER. PHONE NUMBER OF THE PHARMACY PROVIDED TO DR SPENCER, HE SAID HE WILL CALL IN PT'S PRESCRIPTION.
--- NOTE | 2019-01-22 16:34 | NUR ---
CALLED [facility], SPOKE TO BRIDGETTE AT [phone]. CONFIRMED THAT SHE RECEIVED THE FAXED CLINICALS AT [phone].
--- NOTE | 2019-01-22 16:34 | NUR ---
CALLED SERENA LUNA OF [employer] AT [phone], I DISCUSSED WITH HER REGARDING PATIENT'S DC PLANNING FOR HOME HEALTH WITH PT. SHE STATED THAT PATIENT IS BEING SEEN BY [facility] FOR PT. SHE ALSO PROVIDED ME OF THEIR CONTACT NUMBER [phone]. SPOKE TO TATIANNA GREENE, DIRECTOR OF THE [facility] AND CONFIRMED WITH ME THAT THE PATIENT IS UNDER THEIR SERVICES. SHE PROVIDED ME OF THEIR FAX NUMBER TO SEND ORDERS. MADE HER AWARE THAT PHYSICAL THERAPY STILL HAVE TO EVALUATE THE PATIENT FOR TOMORROW AND WE WILL GO FROM THERE.
--- NOTE | 2019-01-22 16:38 | NUR ---
PER [employer] [facility] [employer], SERENA LUNA, [employer] FARM MANAGER WILL BE AT 1800. PRIMARY RN AND CHARGE NURSE MADE AWARE.
--- NOTE | 2019-01-22 17:56 | NUR ---
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
--- NOTE | 2019-01-22 18:00 | NUR ---
PT D/C'D TO [facility]. HE WAS PICKED UP BY TWO OF HIS CARETAKERS. D/C INSTRUCTIONS WERE EXPLAINED TO THE CARETAKERS, THEY VERBALIZED UNDERSTANDING. THEY ARE AWARE OF THE PRESCRIPTION READY AT THE PT'S PHARMACY. IV SITE AND WRISTBANDS WERE REMOVED. PT LEFT WITH ALL HIS BELONGINGS IN A STABLE CONDITION.
== END 2019-01-22 18:00 | DRG 871 ==
LOC: MED 13:09 → MTU 15:45
PROVIDERS: ADMIT Preventive Medicine Preventive Medicine/Occupational Environmental Medicine; ATTEND Preventive Medicine Preventive Medicine/Occupational Environmental Medicine
DX: A41.9 Sepsis, unspecified organism (principal); J96.00 Acute respiratory failure, unspecified whether with hypoxia or hypercapnia; J69.0 Pneumonitis due to inhalation of food and vomit; E87.1 Hypo-osmolality and hyponatremia; E03.9 Hypothyroidism, unspecified; F32.9 Major depressive disorder, single episode, unspecified; G40.909 Epilepsy, unspecified, not intractable, without status epilepticus; F79 Unspecified intellectual disabilities; R13.10 Dysphagia, unspecified; Z93.1 Gastrostomy status
CPT/HCPCS: 36415; 36600; 71045; 80048; 80053; 81001; 82803; 82948; 83605; 83880; 84484; 85025; 85651; 86140; 87040; 87081; 87086; 93005; 94640; 96365; 96368; 96375; 97116; 97161-GP; 99285; J1956; J2060; J2930; J3475; J3490; J7042; J7060; J7613; J7644; Q0092